=== PATIENT | female | born 1960 | race Caucasian/White ===

== ENCOUNTER 2025-06-07 08:53 | Day surgery (SDC) | payer BC, MEDICARE ==
[2025-06-06 15:53] VITALS: BMI 20.8
[2025-06-07] MEDS ORDERED: PROPOFOL 20 ML ONE (09:13)
[2025-06-07] MEDS ORDERED: LIDOCAINE HCL/PF 2% SDV 5ML VIAL ONE (09:13)
[2025-06-07] MEDS ORDERED: MIDAZOLAM HCL 2 MG/2 ML SINGLE DOSE VIAL ONE (09:13)
[2025-06-07] MEDS ORDERED: BUPIVACAINE HCL/EPINEPHRINE/PF 30 ML VIAL IJ ONE (09:47)
[2025-06-07] MEDS ORDERED: SCOPOLAMINE HYDROBROMIDE 1 PATCH PATCH.TD72 ONE (10:24)
[2025-06-07] MEDS ORDERED: DEXAMETHASONE SOD PHOSPHATE 4 MG/1 ML VIAL ONE (10:43)
[2025-06-07] MEDS ORDERED: ONDANSETRON 4 MG/2 ML VIAL ONE (11:11)
[2025-06-07] MEDS ORDERED: KETOROLAC TROMETHAMINE 30 MG/1 ML VIAL ONE (11:11)
[2025-06-07] MEDS ORDERED: ONDANSETRON 4 MG/2 ML VIAL IVPUSH PRN (11:29)
[2025-06-07] MEDS ORDERED: PROMETHAZINE HCL 25 MG/1 ML VIAL IVPB PRN (11:29)
[2025-06-07] MEDS: ACETAMINOPHEN 1000 MG/100 ML BAG IVPB ONE (11:45)
[2025-06-07] MEDS ORDERED: FENTANYL CITRATE/PF 50 MCG/ML VIAL ONE ×4 (11:54→12:27)
[2025-06-07] MEDS: LACTATED RINGERS SOLUTION 1,000 ML IV SCH (12:35)
[2025-06-07 13:39] VITALS: PULSE 67; RESP 16; TEMP 96.9
[2025-06-07 16:18] VITALS: BP 114/75
== END 2025-06-07 14:30 | disposition home or self-care (01) ==
LOC: FASU 08:53
PROVIDERS: ATTEND Orthopaedic Surgery
PROC: 0JBG0ZZ Excision of Right Lower Arm Subcutaneous Tissue and Fascia, Open Approach (ICD-10-PCS; 2025-06-07)
PROC: 0JBG0ZZ Excision of Right Lower Arm Subcutaneous Tissue and Fascia, Open Approach (ICD-10-PCS; principal; 2025-06-07 10:53)
DX: M00.9 Pyogenic arthritis, unspecified (principal)
CPT/HCPCS: 87070; 87205; 94760